=== PATIENT | male | born 1985 | race Caucasian/White ===

== ENCOUNTER 2017-09-21 02:43 | Emergency (ER) | payer MEDICAID ==
[~2017-09-21 02:43] MED LIST: Bactrim Ds Tab1 EACH PO; IBUP800 PO; Norco 10-325 T1 EACH PO; Norco 5-325 Ta1 EACH PO; Ultram50 MG PO; Veetids 500500 MG PO; Vistaril50 MG PO
== END 2017-09-21 04:20 | disposition home or self-care (01) ==
LOC: ER 02:43
DX: M25.512 Pain in left shoulder (principal); F32.9 Major depressive disorder, single episode, unspecified; F90.9 Attention-deficit hyperactivity disorder, unspecified type; F17.210 Nicotine dependence, cigarettes, uncomplicated
CPT/HCPCS: 99281